=== PATIENT | male | born 1950 | race Hispanic/Latino ===

== ENCOUNTER 2019-09-17 05:34 | Day surgery (SDC) | payer OTHER ==
[~2019-09-17] VITALS: Ht 170.2 cm; Wt 75.3 kg
[2019-09-17] MEDS ORDERED: SODIUM CHLORIDE 0.9% 1000ML 1,000 ML IV ONE (05:45)
[2019-09-17] MEDS ORDERED: PRAM0.258 PO (06:09)
[2019-09-17 06:11] VITALS: BP 117/70
[2019-09-17] MEDS ORDERED: ENTA200T5 PO (07:24)
[2019-09-17] MEDS ORDERED: CARB-38 PO (07:24)
[2019-09-17] MEDS ORDERED: CARB1TAB42 PO (07:24)
[2019-09-17] MEDS ORDERED: FLUT16H NASAL (07:24)
[2019-09-17] MEDS ORDERED: PANT40TA25 PO (07:24)
[2019-09-17] MEDS ORDERED: OMEG-148 PO (07:25)
[2019-09-17] MEDS ORDERED: CYAN250014 PO (07:25)
[2019-09-17] MEDS ORDERED: PROPOFOL 10 MG/ML 20ML VIAL IV ONE (07:43)
[2019-09-17] MEDS ORDERED: GLYCOPYRROLATE 0.2 MG/ML 5 ML VIAL ONE (07:51)
[2019-09-17 08:00] VITALS: BP 146/87
== END 2019-09-17 08:20 | disposition home or self-care (01) ==
LOC: ENDO 05:34 → DAH 05:59 → ENDO 08:20
PROVIDERS: ATTEND Internal Medicine
DX: R12 Heartburn (principal); K26.9 Duodenal ulcer, unspecified as acute or chronic, without hemorrhage or perforation; K22.8 Other specified diseases of esophagus; K31.89 Other diseases of stomach and duodenum; G20 Parkinson's disease; R63.4 Abnormal weight loss; R14.0 Abdominal distension (gaseous); Z86.010 Personal history of colon polyps; Z79.899 Other long term (current) drug therapy; Z90.89 Acquired absence of other organs
CPT/HCPCS: 43239; A4215; A4221; A4222; A4223; A4606; A4620; A4663; J2704; J3490; J7030

== ENCOUNTER 2020-03-25 14:25 | Emergency (ER) | payer OTHER ==
[~2020-03-25 14:25] MED LIST: 0.9% SODIUM CHLORIDE 500 ML IV BAG IV ONE; CARB-38 PO; CARB1TAB42 PO; CYAN250014 PO; ENTA200T5 PO; FLUT16H NASAL; OMEG-148 PO; PANT40TA54 PO; PRAM0.258 PO
[2020-03-25 15:33] LABS: BASOPHILS % (AUTO) 0.1 % (0.0-5.0); EOSINOPHILS % (AUTO) 2.1 % (0.0-8.0); HEMATOCRIT 37.5 % (42-54); LYMPHOCYTES % (AUTO) 11.1 % (21.0-51.0); MEAN CORPUSCULAR HEMOGLOBIN 30.2 pg (27.0-33.0); MEAN CORPUSCULAR HGB CONC 33.9 g/dL (32.0-36.0); MEAN CORPUSCULAR VOLUME 89.3 fL (79-99); MONOCYTES % (AUTO) 8.5 % (3.0-13.0); PLATELET COUNT (AUTO) 184 K/uL (130-400); RED CELL DISTRIBUTION WIDTH 13.1 % (11.0-15.5); WHITE BLOOD COUNT (AUTO) 9.6 K/uL (4.8-10.8)
[2020-03-25 15:44] LABS: CREATININE 1.1 mg/dL (0.5-1.5); POTASSIUM 3.3 mmol/L (3.5-5.1)
[2020-03-25 15:49] LABS: ALBUMIN 3.9 g/dL (3.5-5.0); BILIRUBIN,TOTAL 0.9 mg/dL (0.2-1.0); TOTAL PROTEIN, SERUM 6.9 g/dL (6.0-8.3)
[2020-03-25 16:07] LABS: APPEARANCE,URINE Cloudy (CLEAR); BILIRUBIN,URINE Negative (NEGATIVE); COLOR,URINE Dark Yellow (YELLOW); GLUCOSE, URINE (UA) Negative (NEGATIVE); KETONES,URINE 15 mg/dL (NEGATIVE); LEUKOCYTE ESTERASE ,URINE Moderate (NEGATIVE); NITRATE,URINE Negative (NEGATIVE); OCCULT BLOOD,URINE Negative (NEGATIVE); PH,URINE 8.5 (5.0-8.0); PROTEIN,URINE POS 1+ mg/dL (NEGATIVE)
[2020-03-25 16:14] LABS: BACTERIA,URINE Many /HPF (None Seen); MUCUS,URINE Few LPF (None Seen); SQUAMOUS EPITHELIAL CELL,UR Few /HPF (0-2)
[2020-03-25] MEDS ORDERED: CEFTRIAXONE SODIUM 1 GM ONE (17:02)
== END 2020-03-25 18:19 | disposition home or self-care (01) ==
LOC: EDH 14:25
DX: N39.0 Urinary tract infection, site not specified (principal); Q61.00 Congenital renal cyst, unspecified; Z98.890 Other specified postprocedural states
CPT/HCPCS: 36415; 76770; 80053; 81001; 85025; 87077; 87088; 87186; 96374; 99284; J0696; J7040